=== PATIENT | male | born 1995 | race Caucasian/White ===

== ENCOUNTER 2016-06-17 13:55 | Emergency (ER) | payer SELFPAY ==
[2016-06-17] MEDS ORDERED: ONDANSETRON 4 MG ORAL DISINTEGRATING TAB (S0181) As Ordered ONE (15:22)
--- NOTE | 2016-06-17 16:05 | REP ---
Clinical: Trauma. Comparison: None . Findings: Age-related atrophy and microvascular ischemic changes are appreciated. The ventricles and sulci are symmetric. Jones-white differentiation is maintained. There is no evidence for acute intracranial hemorrhage, mass/mass effect, pathology or infarction. No extra-axial fluid collection. Calvarium is intact. Paranasal sinuses and mastoid air cells are clear. Impression: Age related atrophy and microvascular ischemic changes. No acute intracranial hemorrhage, infarction, or mass/mass effect. Signed by Prasanth Bernabe MD 06/17/2016 03:56 P
[2016-06-17] MEDS ORDERED: IBUPROFEN 800 MG TAB As Ordered ONE (16:12)
--- NOTE | 2016-06-17 17:04 | EDDOCDS ---
Nurse's Notes [facility] Name: Rashard Brewster Age: 21 yrs Sex: Male : 1995 Arrival Date: 06/17/2016 Time: 13:55 Bed 13 Private MD: NO PRIMARY PHYSICIAN, . Diagnosis: Contusion of scalp Presentation: 06/17 14:00 Presenting complaint: Patient states: was drinking last night and hit his head. po Headache N/V and dizziness all day. This patient has no additional risk factors. Mechanism of Injury: The problem was sustained at a friend's house, resulted from a fall. Adult Sepsis Screening: The patient does not have new or worsening altered mentation. Patient's respiratory rate is less than 22. Systolic blood pressure is greater than 100. Patient has a qSOFA score of 0- Negative Sepsis Screen. Suicide/Homicide risk assessment- the patient denies having any suicidal and/or homicidal ideations and does not present with any other emotional, behavioral or mental health complaints. 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 Transition of care: patient was not received from another setting of care. 14:00 Acuity: LORI Level 4 po 14:00 Method Of Arrival: Walkin/Carried/Asstd po Triage Assessment: 14:03 General: Appears in no apparent distress, Behavior is appropriate for age, cooperative, po pleasant. Pain: Location: back of head Pain currently is 8 out of 10 on a pain scale. Quality of pain is described as aching, Is continuous. HIV screening NA for this visit Offered previously. Neurological: Level of Consciousness is awake, alert, Oriented to person, place, time, Insurance Sales Assistant are equal bilaterally Moves all extremities. Gait is steady, Speech is normal, Facial symmetry appears normal, Pupils are PERRLA, Reports dizziness, headache. Respiratory: Airway is patent Respiratory effort is even, unlabored. GI: Reports nausea, vomiting. Derm: Skin is pink, warm & dry. Historical: - Allergies: no known allergies; - Home Meds: 1. none - PMHx: none; - PSHx: Appendectomy; - Social history: Smoking status: Patient uses tobacco products, light tobacco smoker. No barriers to communication noted, The patient speaks fluent Bulgarian. - : The pt / caregiver states he / she is not on anticoagulants. Home medication list is obtained from the patient. - Exposure Risk Screening:: None identified. Screenin:44 Screening information is obtained from the patient. Fall risk: No risks identified. jjr Assistance ADL's: requires no assistance with activities of daily living. Abuse/DV Screen: The patient / caregiver reports he/she is: not in a situation that causes fear, pain or injury. Nutritional screening: No deficits noted. Advance Directives: There is no active DNR order. home support is adequate. Assessment: 15:44 General: Appears in no apparent distress, well nourished, well groomed, Behavior is jjr appropriate for age. Pain: Location: occipital area and left occipital area. Neurological: No deficits noted. Neurological: Reports headache. GI: Reports nausea. Derm: No deficits noted. 15:59 Adult Sepsis Screening: The patient does not have new or worsening altered mentation. jjr Patient's respiratory rate is less than 22. Systolic blood pressure is greater than 100. Patient has a qSOFA score of 0- Negative Sepsis Screen. 16:47 General: Appears in no apparent distress, reports nausea resolved tolerating gingerale jjr and crackers. Vital Signs: 13:57 BP 135 / 71; Pulse 47; Resp 18; Temp 97.6; Pulse Ox 99% ; Weight 61.23 kg (R); Height 5 sar1 ft. 7 in. (170.18 cm) (R); Pain 8/10; 17:02 BP 130 / 63; Pulse 74; Resp 18; Temp 97.3(O); Pulse Ox 98% on R/A; Pain 6/10; jjr 13:57 Body Mass Index 21.14 (61.23 kg, 170.18 cm) sar1 Vitals: 13:57 Log In Time: June 17, 2016 at 13:57. sar1 [place] Coma Score: 14:00 Eye Response: spontaneous(4). Verbal Response: oriented(5). Motor Response: obeys po commands(6). Total: 15. ED Course: 13:57 Patient visited by Sabi Peña, Insurance Inspector. sar1 13:57 NO PRIMARY PHYSICIAN, . is Private Physician. sar1 13:57 Patient moved to Waiting sar1 13:58 Patient moved to Pre RCE sar1 14:03 Triage Initiated po 14:03 Arm band placed on right wrist. Patient placed in waiting room. po 14:04 Patient visited by Suleman Ching RN. po 15:13 Janet May MD is Attending Physician. sd1 15:13 Patient visited by Janet May MD. sd1 15:13 Patient moved to 13 mlb1 15:44 The patient / caregiver is instructed regarding the plan of care and ED course. jjr 15:45 Patient visited by Rachelle Shook RN. jjr 16:19 Patient visited by Aston Rowan PCA. jlf 16:28 [facility] Payment Agreement was scanned into [employer] and attached to record. zo 16:31 CT Head Without Contrast Returned. EDMS 16:47 Patient visited by Rachelle Shook RN. jjr 16:54 [facility] is Referral Physician. sd1 17:02 No IV's were initiated during this patient's visit. No procedures done that require jjr assistance. Administered Medications: 15:24 Drug: Ondansetron ODT 4 mg [ondansetron 4 mg disintegrating tablet (1 tabs)] Route: PO; dy 16:14 Drug: Ibuprofen 800 mg [ibuprofen 800 mg tablet (1 tabs)] Route: PO; jjr Order Results: Radiology Order: CT Head Without Contrast Test: CT Head Without Contrast REASON FOR EXAMINATION: Trauma; Clinical: Trauma.; ; Comparison: None .; ; Findings:; Age-related atrophy and microvascular ischemic changes are appreciated. The; ventricles and sulci are symmetric. Jones-white differentiation is maintained.; There is no evidence for acute intracranial hemorrhage, mass/mass effect,; pathology or infarction. No extra-axial fluid collection. Calvarium is intact.; Paranasal sinuses and mastoid air cells are clear.; ; Impression:; Age related atrophy and microvascular ischemic changes.; No acute intracranial hemorrhage, infarction, or mass/mass effect.; ; ; Signed by; Prasanth Bernabe MD 06/17/2016 03:56 P; Outcome: 16:54 Discharge ordered by Provider. sd1 17:02 Discharge Assessment: patient administered narcotics - no. The following High Risk jjr Discharge criteria are identified: None. Discharged to home ambulatory, with significant other. Condition: stable. Discharge instructions given to patient, Instructed on discharge instructions, follow up and referral plans. Demonstrated understanding of instructions. CT Study completed. Property sent home with patient. 17:03 Patient left the ED. jjr Signatures: Dispatcher [employer] EDJanet Jones MD MD sd1 Suleman Ching,RN RN Wes Mortensen, RN RN Cliff Sahu RN RN mlb1 Lauren Melendez Jessica, RN RN jjr Aston Rowan, REMINGTON DRUG ROOM CLERK f Sabi Peña, Insurance Inspector Unit sar1 MTDD
--- NOTE | 2016-06-17 17:04 | EDDOCDS ---
Physician Documentation [facility] Name: Rashard Brewster Age: 21 yrs Sex: Male : 1995 Arrival Date: 06/17/2016 Time: 13:55 Bed 13 Private MD: NO PRIMARY PHYSICIAN, . Disposition: 06/17/16 16:54 Discharged to Home/Self Care. Impression: Contusion of scalp. - Condition is Stable. - Discharge Instructions: Alcohol Intoxication, Head Injury, Adult. - Medication Reconciliation, Local Pharmacy Hours form. - [facility] ; When: Call to arrange an appointment. - Problem is new. - Symptoms have improved. Historical: - Allergies: no known allergies; - Home Meds: 1. none - PMHx: none; - PSHx: Appendectomy; - Social history: Smoking status: Patient uses tobacco products, light tobacco smoker. No barriers to communication noted, The patient speaks fluent Polish. - : The pt / caregiver states he / she is not on anticoagulants. Home medication list is obtained from the patient. - Exposure Risk Screening:: None identified. Vital Signs: 06/17 13:57 BP 135 / 71; Pulse 47; Resp 18; Temp 97.6; Pulse Ox 99% ; Weight 61.23 kg / 134.99 lbs sar1 (R); Height 5 ft. 7 in. (170.18 cm) (R); Pain 8/10; 17:02 BP 130 / 63; Pulse 74; Resp 18; Temp 97.3(O); Pulse Ox 98% on R/A; Pain 6/10; jjr 13:57 Body Mass Index 21.14 (61.23 kg, 170.18 cm) sar1 [place] Coma Score: 14:00 Eye Response: spontaneous(4). Verbal Response: oriented(5). Motor Response: obeys po commands(6). Total: 15. MDM: 15:16 Ondansetron ODT Oral Disintegrating Tablet 4 mg PO once ordered. sd1 15:18 CT Head Without Contrast Ordered. EDMS 16:07 Ibuprofen 800 mg PO once ordered. sd1 16:07 Fluid Challenge ordered. sd1 16:18 Financial registration complete. zo 16:28 [facility] Payment Agreement was scanned into [employer] and attached to record. zo Administered Medications: 15:24 Drug: Ondansetron ODT 4 mg [ondansetron 4 mg disintegrating tablet (1 tabs)] Route: PO; dy 16:14 Drug: Ibuprofen 800 mg [ibuprofen 800 mg tablet (1 tabs)] Route: PO; sameerajr Signatures: Dispatcher [employer] Janet Alvarado MD MD sd1 Suleman Ching RN RN po Olin, Zoeann zo Raymond, Jessica, RN RN jjr Youngs, David RN dy The chart was reviewed and I authenticate all verbal orders and agree with the evaluation and treatment provided.Attachments: 16:28 [facility] Payment Agreement zo MTDD
--- NOTE | 2016-06-19 18:04 | EDDOCDS ---
Nurse's Notes [facility] Name: Rashard Brewster Age: 21 yrs Sex: Male : 1995 Arrival Date: 06/17/2016 Time: 13:55 Bed 13 Private MD: NO PRIMARY PHYSICIAN, . Diagnosis: Contusion of scalp Presentation: 06/17 14:00 Presenting complaint: Patient states: was drinking last night and hit his head. po Headache N/V and dizziness all day. This patient has no additional risk factors. Mechanism of Injury: The problem was sustained at a friend's house, resulted from a fall. Adult Sepsis Screening: The patient does not have new or worsening altered mentation. Patient's respiratory rate is less than 22. Systolic blood pressure is greater than 100. Patient has a qSOFA score of 0- Negative Sepsis Screen. Suicide/Homicide risk assessment- the patient denies having any suicidal and/or homicidal ideations and does not present with any other emotional, behavioral or mental health complaints. Status: Patient is not a special agent secret service or dependent. Transition of care: patient was not received from another setting of care. 14:00 Acuity: LORI Level 4 po 14:00 Method Of Arrival: Walkin/Carried/Asstd po Triage Assessment: 14:03 General: Appears in no apparent distress, Behavior is appropriate for age, cooperative, po pleasant. Pain: Location: back of head Pain currently is 8 out of 10 on a pain scale. Quality of pain is described as aching, Is continuous. HIV screening NA for this visit Offered previously. Neurological: Level of Consciousness is awake, alert, Oriented to person, place, time, Java Websphere Developer are equal bilaterally Moves all extremities. Gait is steady, Speech is normal, Facial symmetry appears normal, Pupils are PERRLA, Reports dizziness, headache. Respiratory: Airway is patent Respiratory effort is even, unlabored. GI: Reports nausea, vomiting. Derm: Skin is pink, warm & dry. Historical: - Allergies: no known allergies; - Home Meds: 1. none - PMHx: none; - PSHx: Appendectomy; - Social history: Smoking status: Patient uses tobacco products, light tobacco smoker. No barriers to communication noted, The patient speaks fluent Lithuanian. - : The pt / caregiver states he / she is not on anticoagulants. Home medication list is obtained from the patient. - Exposure Risk Screening:: None identified. Screenin:44 Screening information is obtained from the patient. Fall risk: No risks identified. jjr Assistance ADL's: requires no assistance with activities of daily living. Abuse/DV Screen: The patient / caregiver reports he/she is: not in a situation that causes fear, pain or injury. Nutritional screening: No deficits noted. Advance Directives: There is no active DNR order. home support is adequate. Assessment: 15:44 General: Appears in no apparent distress, well nourished, well groomed, Behavior is jjr appropriate for age. Pain: Location: occipital area and left occipital area. Neurological: No deficits noted. Neurological: Reports headache. GI: Reports nausea. Derm: No deficits noted. 15:59 Adult Sepsis Screening: The patient does not have new or worsening altered mentation. jjr Patient's respiratory rate is less than 22. Systolic blood pressure is greater than 100. Patient has a qSOFA score of 0- Negative Sepsis Screen. 16:47 General: Appears in no apparent distress, reports nausea resolved tolerating gingerale jjr and crackers. Vital Signs: 13:57 BP 135 / 71; Pulse 47; Resp 18; Temp 97.6; Pulse Ox 99% ; Weight 61.23 kg (R); Height 5 sar1 ft. 7 in. (170.18 cm) (R); Pain 8/10; 17:02 BP 130 / 63; Pulse 74; Resp 18; Temp 97.3(O); Pulse Ox 98% on R/A; Pain 6/10; jjr 13:57 Body Mass Index 21.14 (61.23 kg, 170.18 cm) sar1 Vitals: 13:57 Log In Time: June 17, 2016 at 13:57. sar1 [place] Coma Score: 14:00 Eye Response: spontaneous(4). Verbal Response: oriented(5). Motor Response: obeys po commands(6). Total: 15. ED Course: 13:57 Patient visited by Sabi Peña, Associate Faculty. sar1 13:57 NO PRIMARY PHYSICIAN, . is Private Physician. sar1 13:57 Patient moved to Waiting sar1 13:58 Patient moved to Pre RCE sar1 14:03 Triage Initiated po 14:03 Arm band placed on right wrist. Patient placed in waiting room. po 14:04 Patient visited by Suleman Ching RN. po 15:13 Janet May MD is Attending Physician. sd1 15:13 Patient visited by Janet May MD. sd1 15:13 Patient moved to 13 mlb1 15:44 The patient / caregiver is instructed regarding the plan of care and ED course. jjr 15:45 Patient visited by Rachelle Shook RN. jjr 16:19 Patient visited by Aston Rowan PCA. jlf 16:28 [facility] Payment Agreement was scanned into [employer] and attached to record. zo 16:31 CT Head Without Contrast Returned. EDMS 16:47 Patient visited by Rachelle Shook RN. jjr 16:54 [facility] is Referral Physician. sd1 17:02 No IV's were initiated during this patient's visit. No procedures done that require jjr assistance. 06/18 06:52 T-Sheet-- Draft Copy was scanned into [employer] and attached to record. hs2 Administered Medications: 06/17 15:24 Drug: Ondansetron ODT 4 mg [ondansetron 4 mg disintegrating tablet (1 tabs)] Route: PO; dy 16:14 Drug: Ibuprofen 800 mg [ibuprofen 800 mg tablet (1 tabs)] Route: PO; jjr Order Results: Radiology Order: CT Head Without Contrast Test: CT Head Without Contrast REASON FOR EXAMINATION: Trauma; Clinical: Trauma.; ; Comparison: None .; ; Findings:; Age-related atrophy and microvascular ischemic changes are appreciated. The; ventricles and sulci are symmetric. Jones-white differentiation is maintained.; There is no evidence for acute intracranial hemorrhage, mass/mass effect,; pathology or infarction. No extra-axial fluid collection. Calvarium is intact.; Paranasal sinuses and mastoid air cells are clear.; ; Impression:; Age related atrophy and microvascular ischemic changes.; No acute intracranial hemorrhage, infarction, or mass/mass effect.; ; ; Signed by; Prasanth Bernabe MD 06/17/2016 03:56 P; Outcome: 16:54 Discharge ordered by Provider. sd1 17:02 Discharge Assessment: patient administered narcotics - no. The following High Risk jjr Discharge criteria are identified: None. Discharged to home ambulatory, with significant other. Condition: stable. Discharge instructions given to patient, Instructed on discharge instructions, follow up and referral plans. Demonstrated understanding of instructions. CT Study completed. Property sent home with patient. 17:03 Patient left the ED. da Signatures: Dispatcher [employer] EDTN Janet May MD MD sd1 Suleman Ching,RN RN Wes Mortensen, RN Cliff Valadez RN RN mlb1 Lauren Melendez Jessica, RN RN sameerajAston Brennan, REMINGTON TEASELER Sabi Pichardo, Associate Faculty Unit sar1 Sisi Munoz, Reg Reg hs2 Chart Complete MTDD
--- NOTE | 2016-06-19 18:04 | EDDOCDS ---
Physician Documentation [facility] Name: Rashard Brewster Age: 21 yrs Sex: Male : 1995 Arrival Date: 06/17/2016 Time: 13:55 Bed 13 Private MD: NO PRIMARY PHYSICIAN, . Disposition: 06/17/16 16:54 Discharged to Home/Self Care. Impression: Contusion of scalp. - Condition is Stable. - Discharge Instructions: Alcohol Intoxication, Head Injury, Adult. - Medication Reconciliation, Local Pharmacy Hours form. - [facility]: [facility] ; When: Call to arrange an appointment. - Problem is new. - Symptoms have improved. Historical: - Allergies: no known allergies; - Home Meds: 1. none - PMHx: none; - PSHx: Appendectomy; - Social history: Smoking status: Patient uses tobacco products, light tobacco smoker. No barriers to communication noted, The patient speaks fluent Romanian. - : The pt / caregiver states he / she is not on anticoagulants. Home medication list is obtained from the patient. - Exposure Risk Screening:: None identified. Vital Signs: 06/17 13:57 BP 135 / 71; Pulse 47; Resp 18; Temp 97.6; Pulse Ox 99% ; Weight 61.23 kg / 134.99 lbs sar1 (R); Height 5 ft. 7 in. (170.18 cm) (R); Pain 8/10; 17:02 BP 130 / 63; Pulse 74; Resp 18; Temp 97.3(O); Pulse Ox 98% on R/A; Pain 6/10; jjr 13:57 Body Mass Index 21.14 (61.23 kg, 170.18 cm) sar1 [place] Coma Score: 14:00 Eye Response: spontaneous(4). Verbal Response: oriented(5). Motor Response: obeys po commands(6). Total: 15. MDM: 15:16 Ondansetron ODT Oral Disintegrating Tablet 4 mg PO once ordered. sd1 15:18 CT Head Without Contrast Ordered. EDMS 16:07 Ibuprofen 800 mg PO once ordered. sd1 16:07 Fluid Challenge ordered. sd1 16:18 Financial registration complete. zo 16:28 [facility] Payment Agreement was scanned into [employer] and attached to record. zo 06/18 06:52 T-Sheet-- Draft Copy was scanned into [employer] and attached to record. hs2 Administered Medications: 06/17 15:24 Drug: Ondansetron ODT 4 mg [ondansetron 4 mg disintegrating tablet (1 tabs)] Route: PO; dy 16:14 Drug: Ibuprofen 800 mg [ibuprofen 800 mg tablet (1 tabs)] Route: PO; jjr Signatures: Dispatcher [employer] EDNM Janet May MD MD sd1 Suleman Ching RN RN Lauren Grace Jessica, RN RN jjr Sisi Munoz, Reg Reg hs2 Wes Vickers RN dy The chart was reviewed and I authenticate all verbal orders and agree with the evaluation and treatment provided.Attachments: 16:28 [facility] Payment Agreement zo 06/18 06:52 T-Sheet-- Draft Copy hs2 Chart Complete MTDD
--- NOTE | 2016-06-19 18:04 | EDDOCDS ---
Physician Documentation [facility] Name: Rashard Brewster Age: 21 yrs Sex: Male : 1995 Arrival Date: 06/17/2016 Time: 13:55 Bed 13 Private MD: NO PRIMARY PHYSICIAN, . Disposition: 06/17/16 16:54 Discharged to Home/Self Care. Impression: Contusion of scalp. - Condition is Stable. - Discharge Instructions: Alcohol Intoxication, Head Injury, Adult. - Medication Reconciliation, Local Pharmacy Hours form. - Follow up: [facility] ; When: Call to arrange an appointment. - Problem is new. - Symptoms have improved. Historical: - Allergies: no known allergies; - Home Meds: 1. none - PMHx: none; - PSHx: Appendectomy; - Social history: Smoking status: Patient uses tobacco products, light tobacco smoker. No barriers to communication noted, The patient speaks fluent Irish. - : The pt / caregiver states he / she is not on anticoagulants. Home medication list is obtained from the patient. - Exposure Risk Screening:: None identified. Vital Signs: 06/17 13:57 BP 135 / 71; Pulse 47; Resp 18; Temp 97.6; Pulse Ox 99% ; Weight 61.23 kg / 134.99 lbs sar1 (R); Height 5 ft. 7 in. (170.18 cm) (R); Pain 8/10; 17:02 BP 130 / 63; Pulse 74; Resp 18; Temp 97.3(O); Pulse Ox 98% on R/A; Pain 6/10; jjr 13:57 Body Mass Index 21.14 (61.23 kg, 170.18 cm) sar1 [place] Coma Score: 14:00 Eye Response: spontaneous(4). Verbal Response: oriented(5). Motor Response: obeys po commands(6). Total: 15. MDM: 15:16 Ondansetron ODT Oral Disintegrating Tablet 4 mg PO once ordered. sd1 15:18 CT Head Without Contrast Ordered. EDMS 16:07 Ibuprofen 800 mg PO once ordered. sd1 16:07 Fluid Challenge ordered. sd1 16:18 Financial registration complete. zo 16:28 [facility] Payment Agreement was scanned into [employer] and attached to record. zo 06/18 06:52 T-Sheet-- Draft Copy was scanned into [employer] and attached to record. hs2 Administered Medications: 06/17 15:24 Drug: Ondansetron ODT 4 mg [ondansetron 4 mg disintegrating tablet (1 tabs)] Route: PO; dy 16:14 Drug: Ibuprofen 800 mg [ibuprofen 800 mg tablet (1 tabs)] Route: PO; jjr Signatures: Dispatcher [employer] EDAZ Janet May MD MD sd1 Suleman Ching RN RN Lauren Grace Jessica, RN RN jjr Sisi Munoz, Reg Reg hs2 Wes Vickers RN dy The chart was reviewed and I authenticate all verbal orders and agree with the evaluation and treatment provided.Attachments: 16:28 [facility] Payment Agreement zo 06/18 06:52 T-Sheet-- Draft Copy hs2 Chart Complete MTDD
== END 2016-06-17 17:03 | disposition home or self-care (01) ==
LOC: M ED 13:55
DX: S00.03XA Contusion of scalp, initial encounter (principal); X58.XXXA Exposure to other specified factors, initial encounter; Y92.008 Other place in unspecified non-institutional (private) residence as the place of occurrence of the external cause; Y93.9 Activity, unspecified; Y99.9 Unspecified external cause status; Z72.0 Tobacco use

== ENCOUNTER 2019-02-12 10:50 | Emergency (ER) | payer OTHER, SELFPAY ==
[~2019-02-12] VITALS: Ht 172.7 cm; Wt 58.3 kg
[2019-02-12] MEDS ORDERED: IBUP-1114 PO (10:57)
[2019-02-12] MEDS ORDERED: KETOROLAC 60 MG/2 ML VIAL (J1885) IM ONE (13:00)
--- NOTE | 2019-02-12 13:29 | REP ---
Lumbar spine five views: Comparison is 09/27/2012. Vertebral body heights, interspacing alignment are normal. There is no spondylolysis or spondylolisthesis. The facets, pedicles and sacroiliac articulations are unremarkable. Impression: Negative lumbar spine. No interval change. Electronically Signed by Gilson Miller MD 02/12/2019 01:20 P
[2019-02-12] MEDS ORDERED: KETO10TAB PO (14:05)
[2019-02-12 14:09] VITALS: BP 140/79
== END 2019-02-12 14:17 | disposition home or self-care (01) ==
LOC: M ED 10:50
DX: S39.012A Strain of muscle, fascia and tendon of lower back, initial encounter (principal); X50.1XXA Overexertion from prolonged static or awkward postures, initial encounter; Y92.098 Other place in other non-institutional residence as the place of occurrence of the external cause; Y93.H3 Activity, building and construction; F17.200 Nicotine dependence, unspecified, uncomplicated; Z79.1 Long term (current) use of non-steroidal anti-inflammatories (NSAID)
CPT/HCPCS: 72110; 96372; 99283; J1885